=== PATIENT | female | born 1980 | race Caucasian/White ===

== ENCOUNTER 2016-03-01 14:01 | Emergency (ER) | payer OTHER ==
[2016-03-01 15:13] VITALS: BP 137/77
--- NOTE | 2016-03-01 15:32 | UC ---
Respiratory Complaint HPI - HPI Summary HPI Summary: worsening sinus pain, congestion cough - History of Current Complaint Chief Complaint: UCRespiratory Stated Complaint: HEADACHE, EAR ACHE, AND CHEST CONGESTION Time Seen by Provider: 03/01/16 15:23 Hx Obtained From: Patient Hx Last Menstrual Period: 01/25/16 ?: No Onset/Duration: Gradual Onset, Lasting Days - 10, Still Present, Worse Since - past 2 Timing: Constant Severity Initially: Mild Severity Currently: Moderate Character: Cough: Productive Aggravating Factors: Deep Breaths, Recumbent Position Alleviating Factors: Nothing Associated Signs And Symptoms: Positive: Chills, URI, Nasal Congestion, Sinus Discomfort - Allergies/Home Medications Allergies/Adverse Reactions: Allergies Allergy/AdvReac Type Severity Reaction Status Date / Time Azithromycin Allergy Nausea Verified 03/01/16 15:14 Erythromycin Allergy Hives Verified 03/01/16 15:14 Penicillins Allergy Hives Verified 03/01/16 15:14 PMH/Surg Hx/FS Hx/Imm Hx Previously Healthy: Yes Endocrine History Of: Denies: Diabetes, Thyroid Disease Cardiovascular History Of: Denies: Cardiac Disorders, Hypertension Respiratory History Of: Denies: COPD, Asthma GI/ History Of: Denies: Ulcer - Surgical History Surgical History: Yes Surgery Procedure, Year, and Place: pleural stenosis at 6 weeks - Family History Known Family History: Positive: Cardiac Disease, Hypertension - Social History Occupation: Employed Full-time Lives: With Family Alcohol Use: None Substance Use Type: None Smoking Status (MU): Heavy Every Day Tobacco Smoker Type: Cigarettes Amount Used/How Often: 1/2 ppd Have You Smoked in the Last Year: Yes Household Exposure Type: Cigarettes Cessation Counseling: Counseled 3+Min - 10 Min - Immunization History Most Recent Tetanus Shot: 2 years ago Review of Systems Constitutional: Chills, Fatigue Skin: Negative Eyes: Negative ENT: Sore Throat, Ear Ache, Nasal Discharge Respiratory: Cough Cardiovascular: Negative Gastrointestinal: Negative Genitourinary: Negative Motor: Negative Neurovascular: Negative Musculoskeletal: Negative Neurological: Headache Psychological: Negative All Other Systems Reviewed And Are Negative: Yes Physical Exam Triage Information Reviewed: Yes Appearance: Well-Nourished, Ill-Appearing - mild, Pain Distress - mild Vital Signs: Initial Vital Signs Temp 98.0 F 03/01/16 15:08 Pulse 90 03/01/16 15:08 Resp 20 03/01/16 15:08 BP 137/77 03/01/16 15:08 Pulse Ox 100 03/01/16 15:08 Vital Signs Reviewed: Yes Eye Exam: Normal Eyes: Positive: Conjunctiva Clear ENT Exam: Other ENT: Positive: Normal ENT inspection, Hearing grossly normal, Pharynx normal, Nasal congestion, Nasal drainage, TMs normal. Negative: Tonsillar swelling, Tonsillar exudate, Trismus, Muffled/hoarse voice Neck exam: Normal Neck: Positive: Supple, Nontender, No Lymphadenopathy Respiratory Exam: Normal Respiratory: Positive: Chest non-tender, Lungs clear, Normal breath sounds, No respiratory distress, No accessory muscle use Cardiovascular Exam: Normal Cardiovascular: Positive: RRR, No Murmur, Pulses Normal, Brisk Capillary Refill Musculoskeletal Exam: Normal Musculoskeletal: Positive: Strength Intact, ROM Intact, No Edema Neurological Exam: Normal Neurological: Positive: Alert, Muscle Tone Normal Psychological Exam: Normal Skin Exam: Normal - Additional Comments menses has been irregular Diagnostic Evaluation - Laboratory O2 Sat by Pulse Oximetry: 100 Respiratory Course/Dx - Course Course Of Treatment: zithromax, albuterol, flonase, increase fluids, follow with pcp, nicotine dependant - Differential Dx/Diagnosis Differential Diagnosis/HQI/PQRI: Asthma, Bronchitis, Influenza, Laryngitis, Sinusitis Provider Diagnoses: Bronchitis, nicotine dependant Discharge - Discharge Plan Condition: Critical Disposition: HOME Prescriptions: Albuterol HFA INHALER* [Ventolin HFA Inhaler*] 2 puff INH Q6H PRN #1 mdi PRN Reason: cough Azithromycin TAB* [Zithromax TAB (Z-WENDY) 250 mg #6 tabs] 2 tab PO .TODAY, THEN 1 DAILY #1 wendy Fluticasone NASAL SPRAY 50MCG* [Flonase NASAL SPRAY 50MCG*] 2 spray BOTH NARES DAILY #1 btl Patient Education Materials: Nicotine (By breathing), How to Stop Smoking (ED) , How to Use a Metered-Dose Inhaler (ED), Acute Bronchitis (ED), Acute Cough (ED ) Forms: *Work Release Referrals: Jim Keyes MD [Primary Care Provider] - If Needed Addendum entered and electronically signed by Enedina Garcia NP 03/02/16 19: 29: Addendum Addendum: home in stable condition
== END 2016-03-01 16:12 | disposition home or self-care (01) ==
LOC: UCEAST 14:01
DX: J40 Bronchitis, not specified as acute or chronic (principal); Z88.1 Allergy status to other antibiotic agents; Z88.0 Allergy status to penicillin; F17.210 Nicotine dependence, cigarettes, uncomplicated
CPT/HCPCS: 81002; 81025; 99211; G0463

== ENCOUNTER 2016-04-25 14:54 | Emergency (ER) | payer OTHER ==
[2016-04-25 15:18] VITALS: BP 135/77
--- NOTE | 2016-04-25 15:54 | UC ---
Knee Pain HPI - HPI Summary HPI Summary: right knee pain for 3 weeks some swelling and cracking with movement - History of Current Complaint Chief Complaint: UCLowerExtremity Stated Complaint: KNEE PAIN Time Seen by Provider: 04/25/16 15:43 Hx Obtained From: Patient Hx Last Menstrual Period: [id number] ?: No Onset/Duration: Gradual Onset, Lasting Weeks - 3 weeks ago, Still Present Severity Initially: Moderate Severity Currently: Moderate Pain Intensity: 5 Pain Scale Used: 0-10 Numeric Character: Aching, Throbbing Aggravating Factor(s): Movement, Weight Bearing Alleviating Factor(s): Rest, Position Associated Signs And Symptoms: Positive: Swelling Able to Bear Weight: Yes - Allergies/Home Medications Allergies/Adverse Reactions: Allergies Allergy/AdvReac Type Severity Reaction Status Date / Time Azithromycin Allergy Nausea Verified 04/25/16 15:18 Erythromycin Allergy Hives Verified 04/25/16 15:18 Penicillins Allergy Hives Verified 04/25/16 15:18 PMH/Surg Hx/FS Hx/Imm Hx Previously Healthy: Yes Endocrine History Of: Denies: Diabetes, Thyroid Disease Cardiovascular History Of: Denies: Cardiac Disorders, Hypertension Respiratory History Of: Denies: COPD, Asthma GI/ History Of: Denies: Ulcer - Surgical History Surgical History: Yes Surgery Procedure, Year, and Place: pleural stenosis at 6 weeks - Family History Known Family History: Positive: None, Cardiac Disease, Hypertension - Social History Occupation: Employed Full-time Lives: With Family Alcohol Use: None Substance Use Type: None Smoking Status (MU): Heavy Every Day Tobacco Smoker Type: Cigarettes Amount Used/How Often: 1/2 ppd Have You Smoked in the Last Year: Yes Household Exposure Type: Cigarettes Cessation Counseling: Counseled 3+Min - 10 Min - Immunization History Most Recent Tetanus Shot: 2 years ago Review of Systems Constitutional: Negative Skin: Negative Eyes: Negative ENT: Negative Respiratory: Negative Cardiovascular: Negative Gastrointestinal: Negative Genitourinary: Negative Motor: Negative Neurovascular: Negative Musculoskeletal: Arthralgia - right knee Neurological: Negative Psychological: Negative All Other Systems Reviewed And Are Negative: Yes Physical Exam Triage Information Reviewed: Yes Appearance: Well-Appearing, Well-Nourished, Obese Vital Signs: Initial Vital Signs Temp 98.2 F 04/25/16 15:12 Pulse 81 04/25/16 15:12 Resp 20 04/25/16 15:12 BP 135/77 04/25/16 15:12 Pulse Ox 100 04/25/16 15:12 Vital Signs Reviewed: Yes Eye Exam: Normal Eyes: Positive: Conjunctiva Clear ENT Exam: Normal ENT: Positive: Normal ENT inspection, Hearing grossly normal. Negative: Nasal congestion, Nasal drainage, Trismus, Muffled/hoarse voice Neck exam: Normal Neck: Positive: Supple, Nontender Respiratory Exam: Normal Respiratory: Positive: Chest non-tender, No respiratory distress, No accessory muscle use Cardiovascular Exam: Normal Cardiovascular: Positive: RRR, Pulses Normal, Brisk Capillary Refill Musculoskeletal Exam: Normal Musculoskeletal: Positive: Strength Intact, ROM Intact, No Edema Neurological Exam: Normal Neurological: Positive: Alert, Muscle Tone Normal, Fatigued Psychological Exam: Normal Skin Exam: Normal Diagnostics - Radiology No standard instances Xray Interpretation: No Acute Changes Radiology Interpretation Completed By: Radiologist Knee Pain Course/Dx - Course Course Of Treatment: Lauri, Ibuprofen, physical therapy, knee strengthing exercise , follow with pcp/ortho re-check if not improving with ortho - Differential Dx/Diagnosis Differential Diagnosis/HQI/PQRI: Contusion, Dislocation, Fracture (Closed), Sprain, Strain Provider Diagnoses: right knee pain Discharge - Discharge Plan Condition: Stable Disposition: HOME Prescriptions: Ibuprofen TAB* [Motrin TAB* 600 MG] 600 mg PO Q6H PRN #40 tab PRN Reason: pain Patient Education Materials: Knee Pain (ED), Knee Exercises (GEN) Referrals: Sravani Johns MD [Primary Care Provider] - Pretty Yang MD [Medical Doctor] - If Needed
--- NOTE | 2016-04-25 16:24 | RAD ---
INDICATION: Right knee pain COMPARISON: None TECHNIQUE: AP, lateral, tunnel, and sunrise views were obtained. FINDINGS: The bony structures, joint spaces, and soft tissues are normal for age. IMPRESSION: NO ACUTE BONY FINDINGS.
== END 2016-04-25 16:40 | disposition home or self-care (01) ==
LOC: UCEAST 14:54
DX: M25.561 Pain in right knee (principal); Z88.1 Allergy status to other antibiotic agents; Z88.0 Allergy status to penicillin; F17.210 Nicotine dependence, cigarettes, uncomplicated; Z71.6 Tobacco abuse counseling
CPT/HCPCS: 99211; G0463

== ENCOUNTER 2016-07-28 10:36 | Emergency (ER) | payer OTHER ==
[2016-07-28 10:55] VITALS: BP 115/62
--- NOTE | 2016-07-28 13:25 | UC ---
Back Pain HPI - HPI Summary HPI Summary: mid low back pain for years currently has been worse of 2 weeks--no radiating in to legs - History of Current Complaint Chief Complaint: UCBackPain Stated Complaint: BACK PAIN Time Seen by Provider: 07/28/16 13:14 Hx Obtained From: Patient Hx Last Menstrual Period: 07/02/16 ?: No Onset/Duration: Gradual Onset, Worse Since - past 2 weeks Timing: Constant Severity Initially: Moderate Severity Currently: Moderate Pain Intensity: 8 Pain Scale Used: 0-10 Numeric Back Pain: Is Discrete @ - mid low back Character: Aching, Stiffness Aggravating: Movement Alleviating: Nothing - Allergies/Home Medications Allergies/Adverse Reactions: Allergies Allergy/AdvReac Type Severity Reaction Status Date / Time Azithromycin Allergy Nausea Verified 07/28/16 10:55 Erythromycin Allergy Hives Verified 07/28/16 10:55 Penicillins Allergy Hives Verified 07/28/16 10:55 Home Medications: Home Medications Ibuprofen TAB* [Motrin TAB* 600 MG] 800 mg PO Q6H PRN 07/28/16 [History Confirmed 07/28/16] PMH/Surg Hx/FS Hx/Imm Hx Previously Healthy: No - chronic back pain GI/ History: Gastroesophageal Reflux - Surgical History Surgical History: Yes Surgery Procedure, Year, and Place: pleural stenosis at 6 weeks - Family History Known Family History: Positive: None, Cardiac Disease, Hypertension - Social History Occupation: Employed Full-time Lives: With Family Alcohol Use: None Substance Use Type: None Smoking Status (MU): Heavy Every Day Tobacco Smoker Type: Cigarettes Amount Used/How Often: 1/2 ppd Have You Smoked in the Last Year: Yes Household Exposure Type: Cigarettes Cessation Counseling: Patient Advised to Stop - Immunization History Most Recent Tetanus Shot: 2 years ago Review of Systems Constitutional: Negative Skin: Negative Eyes: Negative ENT: Negative Respiratory: Negative Cardiovascular: Negative Gastrointestinal: Negative Genitourinary: Negative Motor: Negative Neurovascular: Negative Musculoskeletal: Arthralgia - mid low back pain Neurological: Negative Psychological: Negative All Other Systems Reviewed And Are Negative: Yes Physical Exam Triage Information Reviewed: Yes Appearance: Well-Appearing, No Pain Distress, Well-Nourished Vital Signs: Initial Vital Signs Temp 99.5 F 07/28/16 10:52 Pulse 80 07/28/16 10:52 Resp 16 07/28/16 10:52 BP 115/62 07/28/16 10:52 Pulse Ox 100 07/28/16 10:52 Vital Signs Reviewed: Yes Eye Exam: Normal Eyes: Positive: Conjunctiva Clear ENT Exam: Normal ENT: Positive: Normal ENT inspection, Hearing grossly normal. Negative: Nasal congestion, Nasal drainage, Trismus, Muffled/hoarse voice Dental Exam: Normal Neck exam: Normal Neck: Positive: Supple, Nontender, No Lymphadenopathy Respiratory Exam: Normal Respiratory: Positive: Chest non-tender, No respiratory distress, No accessory muscle use Cardiovascular Exam: Normal Cardiovascular: Positive: RRR, No Murmur, Pulses Normal, Brisk Capillary Refill Abdominal Exam: Normal Abdomen Description: Positive: Nontender, No Organomegaly, Soft. Negative: CVA Tenderness (R), CVA Tenderness (L) Musculoskeletal Exam: Normal Musculoskeletal: Positive: Strength Intact, ROM Intact, No Edema Neurological Exam: Normal Neurological: Positive: Alert, Muscle Tone Normal Psychological Exam: Normal Skin Exam: Normal Back Pain Course/Dx - Course Course Of Treatment: Continue antiinflammatories, low back and corestrengthing exercise, physical therapy referral follow with pcp - Differential Dx/Diagnosis Differential Diagnosis/HQI/PQRI: Arthritis, Strain, Sprain Provider Diagnoses: Acute exacerbation of chronic low back pain Discharge - Discharge Plan Condition: Stable Disposition: HOME Patient Education Materials: Chronic Back Pain (ED), Core Strengthening Exercises (GEN), Lower Back Exercises (ED) Forms: *Work Release Referrals: Sravani Johns MD [Primary Care Provider] - 1 Week
[2016-07-28] MEDS ORDERED: Cyclobenzaprine TAB* 10 MG PO ONE (13:27)
[2016-07-28] MEDS ORDERED: Ibuprofen TAB* 600 MG PO ONE (13:27)
--- NOTE | 2016-07-28 14:00 | RAD ---
HISTORY: Acute exacerbation of chronic pain COMPARISONS: MRI dated August 08, 2011 VIEWS: 5 , Frontal, lateral, coned-down lateral sacral, and bilateral oblique views of the lumbar spine. FINDINGS: ALIGNMENT: The alignment is normal. VERTEBRAL BODIES: The vertebral body heights are normal. The interpedicular distances are normal. JOINTS: There is facet hypertrophic change at L5-S1 INTERVERTEBRAL DISCS: There is mild loss of intervertebral disc height at L5-S1 SOFT TISSUE: Unremarkable. OTHER: The pelvis is unremarkable. The lung bases are clear. IMPRESSION: DEGENERATIVE DISC DISEASE AND OSTEOARTHRITIS AT L5-S1
== END 2016-07-28 14:20 | disposition home or self-care (01) ==
LOC: UCEAST 10:36
DX: M54.5 Low back pain (principal); G89.29 Other chronic pain; Z72.0 Tobacco use
CPT/HCPCS: 72110; 99211; A9270-GY; G0463

== ENCOUNTER 2016-09-08 19:56 | Emergency (ER) | payer OTHER ==
[2016-09-08 20:17] VITALS: BP 115/66
--- NOTE | 2016-09-08 20:59 | RAD ---
INDICATION: Right knee pain and swelling. TECHNIQUE: 4 views of the right knee were obtained. FINDINGS: The bones are in normal alignment. No joint effusion or fracture is seen. Joint spaces appear maintained. IMPRESSION: NEGATIVE EXAM.
--- NOTE | 2016-09-08 21:27 | UC ---
Knee Pain HPI - HPI Summary HPI Summary: ONE WEEK OF RIGHT KNEE SWELLING AND PAIN WITH WEIGHT BEARING. WORKS AT [employer] AND IS ON FEET ALL OF THE TIME. NO CALF PAIN. NO KNOWN TRAUMA. KNEE OVER LAST FOUR DAYS HAS FELT MORE PAINFUL AND MORE UNSTABLE. - History of Current Complaint Chief Complaint: UCLowerExtremity Stated Complaint: RIGHT KNEE Time Seen by Provider: 09/08/16 20:23 Hx Obtained From: Patient Hx Last Menstrual Period: 08/29/16 Onset/Duration: Gradual Onset, Lasting Weeks, Still Present Severity Initially: Mild Severity Currently: Moderate Character: Dull, Aching, Spasmodic Aggravating Factor(s): Movement, Weight Bearing, Stairs Alleviating Factor(s): Rest, Position Associated Signs And Symptoms: Positive: Swelling. Negative: Numbness, Tingling Able to Bear Weight: Yes - Risk Factors Septic Arthritis Risk Factor: Negative Gout Risk Factor: Negative - Allergies/Home Medications Allergies/Adverse Reactions: Allergies Allergy/AdvReac Type Severity Reaction Status Date / Time Azithromycin Allergy Nausea Verified 09/08/16 20:17 Erythromycin Allergy Hives Verified 09/08/16 20:17 Penicillins Allergy Hives Verified 09/08/16 20:17 PMH/Surg Hx/FS Hx/Imm Hx Previously Healthy: Yes - Surgical History Surgical History: Yes Surgery Procedure, Year, and Place: pleural stenosis at 6 weeks old - Family History Known Family History: Positive: None, Cardiac Disease, Hypertension - Social History Occupation: Employed Full-time Lives: With Family Alcohol Use: None Substance Use Type: None Smoking Status (MU): Heavy Every Day Tobacco Smoker Type: Cigarettes Amount Used/How Often: 1/2 ppd Have You Smoked in the Last Year: Yes Household Exposure Type: Cigarettes Cessation Counseling: Patient Advised to Stop - Immunization History Most Recent Tetanus Shot: 2 years ago Review of Systems Constitutional: Negative Skin: Negative Eyes: Negative ENT: Negative Respiratory: Negative Cardiovascular: Negative Gastrointestinal: Negative Genitourinary: Negative Motor: Negative Neurovascular: Negative Musculoskeletal: Arthralgia, Edema, Myalgia Neurological: Negative Psychological: Negative All Other Systems Reviewed And Are Negative: Yes Physical Exam Triage Information Reviewed: Yes Appearance: Well-Appearing, Well-Nourished, Pain Distress - MILD Vital Signs: Initial Vital Signs Temp 99.0 F 09/08/16 20:15 Pulse 83 09/08/16 20:15 Resp 18 09/08/16 20:15 BP 115/66 09/08/16 20:15 Pulse Ox 100 09/08/16 20:15 Vital Signs Reviewed: Yes Eye Exam: Normal ENT Exam: Normal ENT: Positive: Normal ENT inspection, TMs normal Dental Exam: Normal Neck exam: Normal Neck: Positive: Supple, Nontender, No Lymphadenopathy Respiratory Exam: Normal Respiratory: Positive: Chest non-tender, Lungs clear, Normal breath sounds, No respiratory distress, No accessory muscle use Cardiovascular Exam: Normal Cardiovascular: Positive: RRR, No Murmur, Pulses Normal Abdominal Exam: Normal Musculoskeletal: Positive: Strength Intact, ROM Intact, No Edema, Other: - ANTERIOR PATELLAR TENDERNESS Neurological Exam: Normal Psychological Exam: Normal Skin Exam: Normal Knee Pain Course/Dx - Differential Dx/Diagnosis Differential Diagnosis/HQI/PQRI: Contusion, Dislocation, DVT, Fracture (Closed) , Gout, Internal Derangement Of Knee, Patellofemoral Syndrome, Sprain, Strain, Other - MORALES CYST Provider Diagnoses: RIGHT KNEE PAIN Discharge - Discharge Plan Condition: Stable Disposition: HOME Patient Education Materials: Knee Pain (ED) Forms: *Work Release Referrals: [facility] [Outside] Sravani Johns MD [Primary Care Provider] - Pretty Yang MD [Medical Doctor] - Additional Instructions: PHYSICAL THERAPY REFERRAL: You have been prescribed physical therapy. Treatments may include stretching, exercise, application of heat or cold, and other modalities. After an injury, PT can reduce swelling and pain. In recovery, PT is used to restore mobility and strength. Your specific treatment goals are: _X____ Reduction of Swelling (EGS, US, ice as needed) __X___ Pain Reduction (EGS, US, ice as needed) ___X__ TENS Pack Fitting and Instruction Wound Hydrotherapy ___X__ Preservation of Mobility ___X__ Yarsani of Mobility ___X__ Strength Yarsani ___X__ Work or Sports Hardening This instruction sheet also serves as your PHYSICAL THERAPY REFERRAL! Please take it with you to the therapist, so he/she will be aware of your diagnosis and treatment plan. You may see the physical therapist of your choice for these treatments, but may wish to check with your insurance to be sure the provider you select is covered. It's important to see the doctor to whom you have been referred for follow up.
== END 2016-09-08 21:30 | disposition home or self-care (01) ==
LOC: UCEAST 19:56
DX: M25.561 Pain in right knee (principal); Z88.3 Allergy status to other anti-infective agents; Z88.0 Allergy status to penicillin; F17.210 Nicotine dependence, cigarettes, uncomplicated
CPT/HCPCS: 99212; G0463

== ENCOUNTER 2017-03-21 15:57 | Emergency (ER) | payer OTHER ==
[2017-03-21 17:27] VITALS: BP 121/79
--- NOTE | 2017-03-22 22:09 | UC ---
Amos Childs Gabriel, scribed for Jim Graham MD on 03/21/17 at 1836 . FLU HPI - HPI Summary HPI Summary: This patient is a 37 year old F presenting to [facility] [place] accompanied by her son with a chief complaint of an influenza like illness that began 3 days ago. The patient rates the pain 8/10 in severity. Patient reports MARTINEZ, myalgia, sore throat, neck pain, swollen glands, and cough. The patients son has a URI and ear infection. - History of Current Complaint Chief Complaint: UCRespiratory Stated Complaint: URI Time Seen by Provider: 03/21/17 18:26 Hx Obtained From: Patient Hx Last Menstrual Period: 2 wks ago Onset/Duration: Still Present Severity Currently: Moderate Severity Initially: Moderate Pain Intensity: 8 Pain Scale Used: 0-10 Numeric Associated Signs & Symptoms: Positive: Fever, Myalgia, Cough, Sore Throat, Headache - Allergy/Home Medications Allergies/Adverse Reactions: Allergies Allergy/AdvReac Type Severity Reaction Status Date / Time MS Azithromycin Allergy Nausea Verified 03/21/17 17:27 [Azithromycin] MS Erythromycin Allergy Hives Verified 03/21/17 17:27 [Erythromycin] MS Penicillins [Penicillins] Allergy Hives Verified 03/21/17 17:27 PMH/Surg Hx/FS Hx/Imm Hx Other History Of: Negative For: HIV, Hepatitis B, Hepatitis C - Surgical History Surgical History: Yes Surgery Procedure, Year, and Place: pleural stenosis at 6 weeks old - Family History Known Family History: Positive: Cardiac Disease, Hypertension, Diabetes, Other - COPD Negative: Renal Disease, Seizure Disorder - Social History Alcohol Use: None Substance Use Type: None Smoking Status (MU): Heavy Every Day Tobacco Smoker Type: Cigarettes Amount Used/How Often: 1/2 ppd Have You Smoked in the Last Year: Yes Household Exposure Type: Cigarettes - Immunization History Most Recent Tetanus Shot: 2 years ago Review of Systems ENT: Sore Throat, Other - swollen glands Respiratory: Cough Musculoskeletal: Myalgia, Other: - neck pain Neurological: Headache All Other Systems Reviewed And Are Negative: Yes Physical Exam Triage Information Reviewed: Yes Vital Signs: Initial Vital Signs Temp 99.8 F 03/21/17 17:23 Pulse 83 03/21/17 17:23 Resp 18 03/21/17 17:23 BP 121/79 03/21/17 17:23 Pulse Ox 100 03/21/17 17:23 - Additional Comments VITAL SIGNS: Reviewed. GENERAL: Patient is a well developed and nourished F who is lying comfortable in the stretcher. Patient is not in any acute respiratory distress. HEAD AND FACE: Normocephalic EYES: PERRLA, EOMI x 2. EARS: Hearing grossly intact. MOUTH: Oropharynx within normal limits. NECK: Supple, trachea is midline, no adenopathy, no JVD, no carotid bruit. CHEST: Symmetric, no tenderness at palpation LUNGS: Clear to auscultation bilaterally. No wheezing or crackles. CVS: Regular rate and rhythm, S1 and S2 present, no murmurs or gallops appreciated. ABDOMEN: Soft, non-tender. Bowel sounds are normal. No abdominal abnormal pulsations. EXTREMITIES: Full ROM in all major joints, no edema, no cyanosis or clubbing. NEURO: Alert and oriented x 3. No acute neurological deficits. Speech is normal and follows commands. SKIN: Dry and warm Flu Course/Dx - Course Course Of Treatment: This patient is a 37 year old F presenting to [facility] [place] accompanied by her son with a chief complaint of influenza like illness that began 3 days ago. The patient rates the pain 8/10 in severity. Patient reports MARTINEZ, myalgia, sore throat, neck pain, swollen glands, and cough. The patients son has a URI and ear infection. Pt has a negative influenza A and B. I discussed all the findings and test results with the patient. Pt was instructed to return to the urgent care or go to ER immediately if any of the symptoms return or worsens. Plan of care was discussed with the patient and pt understands and agrees. All questions were answered to patient satisfaction. There were no further complaints or concerns. Patient will be discharged with a diagnosed of URI and follow up from PCP. The patient is agreeable with this plan. - Differential Dx/Diagnosis Provider Diagnoses: URI Discharge - Discharge Plan Condition: Stable Disposition: HOME Patient Education Materials: Upper Respiratory Infection (DC) Referrals: Sravani Johns MD [Primary Care Provider] - Additional Instructions: Take tylenol or ibuprofen as needed for fever or pain Increase your fluid intake Return to the if symptoms worsen The documentation as recorded by the Amos sales Gabriel accurately reflects the service I personally performed and the decisions made by , Jim Graham MD.
== END 2017-03-21 19:05 | disposition home or self-care (01) ==
LOC: UCEAST 15:57
DX: J06.9 Acute upper respiratory infection, unspecified (principal); F17.210 Nicotine dependence, cigarettes, uncomplicated; Z88.3 Allergy status to other anti-infective agents; Z88.0 Allergy status to penicillin
CPT/HCPCS: 87502; 99211; G0463

== ENCOUNTER 2017-07-26 19:05 | Emergency (ER) | payer OTHER ==
[2017-07-26 19:20] VITALS: BP 136/72
--- NOTE | 2017-07-26 20:14 | UC ---
Ear Complaint HPI - HPI Summary HPI Summary: States that for the past day she has shooting very painful pain arising from the left side of her face/ear , 6/7/10 in intensity and lasting several seconds. The pain appears ramdomly, she could be eating or just watching TV. Denies any fever or hearing loss. Tobacco use positive - History of Current Complaint Chief Complaint: UCEar Stated Complaint: EAR PAIN, SINUS COMPLAINT Time Seen by Provider: 07/26/17 19:23 Hx Obtained From: Patient Hx Last Menstrual Period: 05/27/17 ?: Yes Onset/Duration: Sudden Onset, Lasting Days Severity Initially: Severe Severity Currently: Severe Pain Intensity: 0 Pain Scale Used: 0-10 Numeric Aggravating Factors: Nothing Alleviating Factors: Nothing - Allergies/Home Medications Allergies/Adverse Reactions: Allergies Allergy/AdvReac Type Severity Reaction Status Date / Time azithromycin Allergy Nausea Verified 05/28/17 16:27 erythromycin base Allergy Hives Verified 05/28/17 16:27 Penicillins Allergy Hives Verified 05/28/17 16:27 PMH/Surg Hx/FS Hx/Imm Hx Previously Healthy: Yes GI/ History: Gastroesophageal Reflux Other History Of: Negative For: HIV, Hepatitis B, Hepatitis C - Surgical History Surgical History: Yes Surgery Procedure, Year, and Place: pleural stenosis at 6 weeks old - Family History Known Family History: Positive: None, Cardiac Disease, Hypertension, Diabetes, Other - COPD Negative: Renal Disease, Seizure Disorder - Social History Alcohol Use: None Substance Use Type: None Smoking Status (MU): Heavy Every Day Tobacco Smoker Type: Cigarettes Amount Used/How Often: 1/2 ppd Have You Smoked in the Last Year: Yes Household Exposure Type: Cigarettes - Immunization History Most Recent Tetanus Shot: 2 years ago Review of Systems Constitutional: Negative ENT: Ear Ache All Other Systems Reviewed And Are Negative: Yes Physical Exam Triage Information Reviewed: Yes Appearance: Well-Appearing, No Pain Distress, Well-Nourished Vital Signs: Initial Vital Signs Temp 99.1 F 07/26/17 19:17 Pulse 89 07/26/17 19:17 Resp 20 07/26/17 19:17 BP 136/72 07/26/17 19:17 Pulse Ox 99 07/26/17 19:17 Vital Signs Reviewed: Yes Eyes: Positive: Conjunctiva Clear ENT: Positive: Hearing grossly normal, Pharynx normal, TMs normal, Uvula midline Dental: Positive: Gross Decay/Caries @ Neck: Positive: Supple, Nontender, No Lymphadenopathy Respiratory: Positive: Chest non-tender, Lungs clear, Normal breath sounds, No respiratory distress Cardiovascular Exam: Normal Cardiovascular: Positive: RRR, No Murmur, Pulses Normal, Brisk Capillary Refill Neurological Exam: Normal, Other - CN 2-12 grossly intact, sensory intact, gait wnl Ear Complaint Course/Dx - Course Course Of Treatment: Tic doloreaux, start carbamazepine, side effects discussed with patient, follow up with dental clinic, and PCP to evaluate resolution of symptoms and need for further testing. - Differential Dx/Diagnosis Provider Diagnoses: trigeminal neuralgia Discharge - Sign-Out/Discharge Documenting (check all that apply): Discharge/Admit/Transfer - Discharge Plan Condition: Good Disposition: HOME Prescriptions: Carbamazepine [Carbatrol] 200 mg PO BID 10 Days #20 cap Patient Education Materials: Trigeminal Neuralgia (ED) Referrals: Sravani Johns MD [Primary Care Provider] - Additional Instructions: follow up with PCP for symptoms and assessment for need of further testing/ imaging. Dental follow up, curb tobacco use - Billing Disposition and Condition Condition: GOOD Disposition: Home
== END 2017-07-26 19:55 | disposition home or self-care (01) ==
LOC: UCEAST 19:05
DX: G50.0 Trigeminal neuralgia (principal); K21.9 Gastro-esophageal reflux disease without esophagitis; Z88.1 Allergy status to other antibiotic agents; Z88.0 Allergy status to penicillin; F17.210 Nicotine dependence, cigarettes, uncomplicated
CPT/HCPCS: 99212; G0463

== ENCOUNTER 2017-12-21 11:20 | Emergency (ER) | payer OTHER ==
[2017-12-21 12:16] VITALS: BP 114/68
--- NOTE | 2017-12-21 12:38 | UC ---
Respiratory Complaint HPI - HPI Summary HPI Summary: Patient presents with 3 day onset chest, head congestion. She states she has a productive cough and is coughing up brownish sputum and in the morning she hears rattling in her chest. She states the morning is the worse for her. She states her son is being treated for URI and ear infections. She denies recorded or tactile fever, chills. - History of Current Complaint Chief Complaint: UCGeneralIllness Stated Complaint: RESP COMPLAINT Time Seen by Provider: 12/21/17 12:22 Hx Obtained From: Patient Hx Last Menstrual Period: 12/04/17 Onset/Duration: Gradual Onset, Lasting Days Pain Intensity: 6 Aggravating Factors: Nothing Alleviating Factors: Nothing Associated Signs And Symptoms: Positive: URI, Nasal Congestion, Sinus Discomfort - Risk Factors Pulmonary Embolism Risk Factors: Negative Cardiac Risk Factors: Negative Pseudomonas Risk Factors: Negative Tuberculosis Risk Factors: Negative - Allergies/Home Medications Allergies/Adverse Reactions: Allergies Allergy/AdvReac Type Severity Reaction Status Date / Time erythromycin base Allergy Hives Verified 12/21/17 12:16 Penicillins Allergy Hives Verified 12/21/17 12:16 azithromycin AdvReac Nausea Verified 12/21/17 12:16 PMH/Surg Hx/FS Hx/Imm Hx Previously Healthy: Yes Other History Of: Negative For: HIV, Hepatitis B, Hepatitis C - Surgical History Surgical History: Yes Surgery Procedure, Year, and Place: pleural stenosis at 6 weeks old - Family History Known Family History: Positive: None, Cardiac Disease, Hypertension, Diabetes, Other - COPD Negative: Renal Disease, Seizure Disorder - Social History Occupation: Employed Full-time Lives: Alone Alcohol Use: Rare Substance Use Type: None Smoking Status (MU): Heavy Every Day Tobacco Smoker Type: Cigarettes Amount Used/How Often: 1/2 ppd Have You Smoked in the Last Year: Yes Household Exposure Type: Cigarettes - Immunization History Most Recent Tetanus Shot: 2 years ago Review of Systems Constitutional: Negative Skin: Negative Eyes: Negative ENT: Negative Respiratory: Cough Cardiovascular: Negative Gastrointestinal: Negative Genitourinary: Negative Motor: Negative Neurovascular: Negative Musculoskeletal: Negative Neurological: Negative Psychological: Negative Is Patient Immunocompromised?: No All Other Systems Reviewed And Are Negative: Yes Physical Exam Triage Information Reviewed: Yes Appearance: Well-Appearing Vital Signs: Initial Vital Signs Temp 98.4 F 12/21/17 12:12 Pulse 83 12/21/17 12:12 Resp 16 12/21/17 12:12 BP 114/68 12/21/17 12:12 Pulse Ox 100 12/21/17 12:12 Vital Signs Reviewed: Yes Eye Exam: Normal ENT Exam: Normal Neck exam: Normal Neck: Positive: 1 Respiratory Exam: Normal Cardiovascular Exam: Normal Musculoskeletal Exam: Normal Neurological Exam: Normal Psychological Exam: Normal Skin Exam: Normal UC Diagnostic Evaluation - Laboratory O2 Sat by Pulse Oximetry: 100 Respiratory Course/Dx - Course Course Of Treatment: Patient presents with 3 day onset chest congestion and cough. On examination she is well appearing and in no extemeous. Her VSS, and she is afebrile with no other confounding comorbities. She is not immunsuppressed. She presents with clinical signs of URI and will be treated conservativity with Robitussin DM, rest, increase fluids. Tylenol and Advil if needed for pain and/or fever. And if symtpoms do not improve as anticiapted she should either return for re-evalaution or be seen by her PCP. She verbalized understanding and in agreemment with the discharge plan. - Differential Dx/Diagnosis Differential Diagnosis/HQI/PQRI: Other - URI Provider Diagnoses: URI Discharge - Sign-Out/Discharge Documenting (check all that apply): Patient Departure All imaging exams completed and their final reports reviewed: No Studies - Discharge Plan Condition: Stable Disposition: HOME Prescriptions: GuaiFENesin DM* [Robitussin DM*] 5 ml PO Q4H PRN #180 ml MDD 30 ml PRN Reason: Cough Patient Education Materials: Upper Respiratory Infection (DC) Referrals: Sravani Johns MD [Primary Care Provider] - - Billing Disposition and Condition Condition: STABLE Disposition: Home - Attestation Statements Document Initiated by Scribe: No
== END 2017-12-21 12:31 | disposition home or self-care (01) ==
LOC: UCEAST 11:20
DX: J06.9 Acute upper respiratory infection, unspecified (principal); F17.210 Nicotine dependence, cigarettes, uncomplicated; Z88.0 Allergy status to penicillin; Z88.1 Allergy status to other antibiotic agents
CPT/HCPCS: 99212; G0463

== ENCOUNTER 2018-05-16 15:50 | Emergency (ER) | payer OTHER ==
[2018-05-16 16:22] VITALS: BP 136/85
--- NOTE | 2018-05-16 16:38 | UC ---
Throat Pain/Nasal Teddy HPI - HPI Summary HPI Summary: 38-year-old woman comes in with a chief complaint of sinusitis symptoms. Patient's been sick for 3 or 4 days. She's got runny nose. She feels pressure in her sinuses. Minimal sore throat. Patient has some neck pain in the posterior lateral aspect. No back pain. No difficulty moving her neck. No chest congestion no shortness of breath. She has not tried any over-the- counter medications. - History of Current Complaint Chief Complaint: UCRespiratory Stated Complaint: SINUS ISSUES Time Seen by Provider: 05/16/18 16:29 Hx Last Menstrual Period: 04/29/18 Pain Intensity: 8 - Allergies/Home Medications Allergies/Adverse Reactions: Allergies Allergy/AdvReac Type Severity Reaction Status Date / Time erythromycin base Allergy Hives Verified 05/16/18 16:22 Penicillins Allergy Hives Verified 05/16/18 16:22 azithromycin AdvReac Nausea Verified 05/16/18 16:22 PMH/Surg Hx/FS Hx/Imm Hx Previously Healthy: Yes GI/ History: Gastroesophageal Reflux Other History Of: Negative For: HIV, Hepatitis B, Hepatitis C - Surgical History Surgical History: Yes Surgery Procedure, Year, and Place: pleural stenosis at 6 weeks old - Family History Known Family History: Positive: None, Cardiac Disease, Hypertension, Diabetes, Other - COPD Negative: Renal Disease, Seizure Disorder - Social History Alcohol Use: Rare Substance Use Type: None Smoking Status (MU): Light Every Day Tobacco Smoker Type: Cigarettes Amount Used/How Often: 1/2 ppd Have You Smoked in the Last Year: Yes Household Exposure Type: Cigarettes - Immunization History Most Recent Tetanus Shot: 2 years ago Review of Systems All Other Systems Reviewed And Are Negative: Yes Constitutional: Positive: Fever Skin: Positive: Negative Eyes: Positive: Negative ENT: Positive: Sore Throat, Nasal Discharge, Sinus Congestion, Sinus Pain/ Tenderness Respiratory: Positive: Negative Cardiovascular: Positive: Negative Gastrointestinal: Positive: Negative Motor: Positive: Negative Neurovascular: Positive: Negative Musculoskeletal: Positive: Myalgia Neurological: Positive: Headache Psychological: Positive: Negative Is Patient Immunocompromised?: No Physical Exam Triage Information Reviewed: Yes Appearance: No Pain Distress, Well-Nourished, Ill-Appearing Vital Signs: Initial Vital Signs Temp 100.3 F 05/16/18 16:18 Pulse 86 05/16/18 16:18 Resp 16 05/16/18 16:18 BP 136/85 05/16/18 16:18 Pulse Ox 100 05/16/18 16:18 Vital Signs Reviewed: Yes Eye Exam: Normal Eyes: Positive: Conjunctiva Clear ENT: Positive: Pharyngeal erythema, Nasal congestion, Nasal drainage, TMs normal Neck exam: Normal Neck: Positive: Supple Respiratory: Positive: Lungs clear, Normal breath sounds, No respiratory distress Cardiovascular: Positive: RRR Musculoskeletal Exam: Normal Musculoskeletal: Positive: Strength Intact, ROM Intact Neurological Exam: Normal Neurological: Positive: Alert, Muscle Tone Normal Psychological Exam: Normal Psychological: Positive: Age Appropriate Behavior Skin Exam: Normal Throat Pain/Nasal Course/Dx - Course Course Of Treatment: DISCUSSED VIRAL VERSES BACTERIAL INFECTION AND THE ROLE OF ANTIBIOTICS. THE PATIENT WISHES TO BE ON ANTIBIOTICS AT THIS TIME. Patient's neck was supple with full range of motion. Clinically the patient does not have meningitis. We discussed the signs and symptoms of meningitis and let her know that if she worsens she needs to get reevaluated again right away. - Differential Dx/Diagnosis Provider Diagnosis: Sinusitis Discharge - Sign-Out/Discharge Documenting (check all that apply): Patient Departure All imaging exams completed and their final reports reviewed: No Studies - Discharge Plan Condition: Stable Disposition: HOME Prescriptions: DOXYcycline CAP(*) [DOXYcycline 100MG CAP(*)] 100 mg PO BID #20 cap Patient Education Materials: Sinusitis (ED) Forms: *Work Release Referrals: Sravani Johns MD [Primary Care Provider] - Additional Instructions: FOLLOW UP WITH YOUR DOCTOR IF NOT COMPLETELY IMPROVED. GET REEVALUATED SOONER IF YOUR CONDITION WORSENS OR ANY QUESTIONS OR CONCERNS. - Billing Disposition and Condition Condition: STABLE Disposition: Home
== END 2018-05-16 16:50 | disposition home or self-care (01) ==
LOC: UCEAST 15:50
DX: J01.90 Acute sinusitis, unspecified (principal); K21.9 Gastro-esophageal reflux disease without esophagitis; F17.210 Nicotine dependence, cigarettes, uncomplicated; Z88.3 Allergy status to other anti-infective agents; Z88.0 Allergy status to penicillin
CPT/HCPCS: 99202; G0463

== ENCOUNTER 2018-07-21 08:47 | Emergency (ER) | payer OTHER ==
[2018-07-21 08:56] VITALS: BP 118/77
--- NOTE | 2018-07-21 09:12 | UC ---
Throat Pain/Nasal Teddy HPI - HPI Summary HPI Summary: 38 y/o male presents to the urgent care c/o nasal congestion, green nasal discharge for the past 2 weeks. Pt w/ Hx of recurrent sinusitis w/ narrowing of RT maxillary sinuses. Symptoms worsen for the past week w/ productive cough and green phlegm. About 2 days ago, she developed sore throat and moderate PND. Cough is worse and night time, she feels RT lung is very congested. Pt has been taken OTC medication w/o any improvement of symptoms. Pt denies wheezing, SOB, chest pain, abdominal pain, N/v/D. - History of Current Complaint Chief Complaint: UCRespiratory Stated Complaint: CONGESTION Time Seen by Provider: 07/21/18 09:10 Hx Obtained From: Patient Hx Last Menstrual Period: 07/05/18 Onset/Duration: Gradual Onset, Lasting Weeks - 2 weeks, Still Present, Worse Since - 1 week Severity: Moderate Pain Intensity: 7 - sinus pain Pain Scale Used: 0-10 Numeric Cough: Sputum Appears - green Associated Signs & Symptoms: Positive: Sinus Discomfort, Nasal Discharge - green. Negative: Wheezing, Fever - Epiglottits Risk Factors Epiglottis Risk Factors: Negative - Allergies/Home Medications Allergies/Adverse Reactions: Allergies Allergy/AdvReac Type Severity Reaction Status Date / Time erythromycin base Allergy Hives Verified 07/21/18 08:56 Penicillins Allergy Hives Verified 07/21/18 08:56 azithromycin AdvReac Nausea Verified 07/21/18 08:56 PMH/Surg Hx/FS Hx/Imm Hx Previously Healthy: Yes Other Respiratory History: recurrent sinusitis Other History Of: Negative For: HIV, Hepatitis B, Hepatitis C - Surgical History Surgical History: Yes Surgery Procedure, Year, and Place: pleural stenosis at 6 weeks old - Family History Known Family History: Positive: Cardiac Disease, Hypertension, Diabetes, Other - COPD, depression Negative: Renal Disease, Seizure Disorder - Social History Occupation: Employed Full-time Lives: With Family Alcohol Use: Rare Substance Use Type: None Smoking Status (MU): Light Every Day Tobacco Smoker Type: Cigarettes Amount Used/How Often: 1/2 ppd Have You Smoked in the Last Year: Yes Household Exposure Type: Cigarettes - Immunization History Most Recent Tetanus Shot: 2 years ago Review of Systems All Other Systems Reviewed And Are Negative: Yes Constitutional: Positive: Fatigue Skin: Positive: Negative Eyes: Positive: Negative ENT: Positive: Sore Throat, Nasal Discharge - green, Sinus Congestion, Sinus Pain/Tenderness, Other - moderate green PND Respiratory: Positive: Cough - productive w/ green phlegm Cardiovascular: Positive: Negative Gastrointestinal: Positive: Negative Genitourinary: Positive: Negative Motor: Positive: Negative Neurovascular: Positive: Negative Musculoskeletal: Positive: Negative Neurological: Positive: Negative Psychological: Positive: Negative Is Patient Immunocompromised?: No Physical Exam - Summary Physical Exam Summary: Vital Signs Reviewed: Yes General: well developed, well nourished female sitting in the examining table w/ o any apparent distress Eyes: Positive: Conjunctiva Clear - PERRLA, EOMI, fundi grossly normal ENT: Positive: Normal ENT inspection, Hearing grossly normal, Pharynx normal, Nasal congestion - edematous and erythematous nasal mucosa, Nasal drainage - yellowish drainage, positive maxiallary and fronatal sinuses tendernes on percussion, RT>LF, B/L external ear canals clear, TMs normal. Negative: Tonsillar swelling, Tonsillar exudate Neck: Positive: Supple, Nontender, No Lymphadenopathy Respiratory: no orthopnea or dyspnea. Able to speak in full sentences, no retractions or accessory muscle use, no tripod position, stridor, or head bobbing. Positive breath sounds bilaterally. diffuse scattered rhonchi on RT lung, no wheezes, no crackles or rales. Cardiovascular: Positive: RRR, No Murmur, Pulses Normal, Brisk Capillary Refill Abdomen Description: Positive: Nontender, No Organomegaly, Soft. Negative: CVA Tenderness (R), CVA Tenderness (L) Bowel Sounds: Positive: Present Musculoskeletal Exam: Normal Musculoskeletal: Positive: Strength Intact, ROM Intact, No Edema Neurological Exam: Normal Psychological Exam: Normal Skin Exam: Normal Triage Information Reviewed: Yes Vital Signs: Initial Vital Signs Temp 99 F 07/21/18 08:53 Pulse 77 07/21/18 08:53 Resp 16 07/21/18 08:53 BP 118/77 07/21/18 08:53 Pulse Ox 100 07/21/18 08:53 Throat Pain/Nasal Course/Dx - Course Course Of Treatment: 38 y/o male presents to the urgent care c/o nasal congestion, green nasal discharge for the past 2 weeks. Pt w/ Hx of recurrent sinusitis w/ narrowing of RT maxillary sinuses. Symptoms worsen for the past week w/ productive cough and green phlegm. About 2 days ago, she developed sore throat and moderate PND. Cough is worse and night time, she feels RT lung is very congested. Pt has been taken OTC medication w/o any improvement of symptoms. Pt denies wheezing, SOB, chest pain, abdominal pain, N/v/D. Hx obtained. B/l w/ Scattered RT posterior lung w/ rhonchi, no wheezes, no crackles, no rales, O2Sat: - Differential Dx/Diagnosis Differential Diagnosis/HQI/PQRI: Influenza, Mononucleosis, Otitis Media, Pharyngitis, Sinusitis, Tonsillitis, URI, Other - bronchitis Provider Diagnosis: Acute bacterial sinusitis, Acute bronchitis Discharge - Sign-Out/Discharge Documenting (check all that apply): Patient Departure - d/C home All imaging exams completed and their final reports reviewed: Yes - Discharge Plan Condition: Stable Disposition: HOME Prescriptions: Benzonatate CAP* [Tessalon 100 MG CAP*] 100 mg PO TID #21 cap DOXYcycline CAP(*) [DOXYcycline 100MG CAP(*)] 100 mg PO BID #20 cap Fluticasone NASAL SPRAY 50MCG* [Flonase NASAL SPRAY 50MCG*] 2 spray BOTH NARES DAILY #1 btl Patient Education Materials: Sinusitis (ED), Acute Bronchitis (ED) Referrals: Sravani Johns MD [Primary Care Provider] - 3 Days Additional Instructions: 1- Please increase fluid intake and rest. take full course of antibiotic to avoid resistance. Take yogurts w/ probiotics or Culturelle to protect your GI system 2-Use Flonase as directed to help drain fluid. Also buy saline drops to clear sinuses 3-Take Tessalon tabs PO to alleviate cough. Increase hydration, rest, eat well and avid strenuous exercise. 4-Please f/u w/ your PCP in 3 days if symptoms do not improve for further management and treatment - Billing Disposition and Condition Condition: STABLE Disposition: Home
== END 2018-07-21 09:55 | disposition home or self-care (01) ==
LOC: UCEAST 08:47
DX: J01.90 Acute sinusitis, unspecified (principal); B96.89 Other specified bacterial agents as the cause of diseases classified elsewhere; J20.9 Acute bronchitis, unspecified; Z88.0 Allergy status to penicillin; Z88.1 Allergy status to other antibiotic agents; F17.210 Nicotine dependence, cigarettes, uncomplicated
CPT/HCPCS: 71046; 99212; G0463

== ENCOUNTER 2019-01-19 15:11 | Emergency (ER) | payer OTHER ==
[2019-01-19 15:23] VITALS: BP 132/80
--- NOTE | 2019-01-19 15:33 | UC ---
Throat Pain/Nasal Teddy HPI - HPI Summary HPI Summary: 38 year old female presents with 3 day history of nasal congestion, sinus pressure, and occasional non-productive cough. Has not treated symptoms with OTC medications. Denies fever, chills, ear pain, sore throat, chest pain, or difficulty breathing. - History of Current Complaint Chief Complaint: UCGeneralIllness Stated Complaint: POSS SINUS INFECTION Time Seen by Provider: 01/19/19 15:28 Hx Obtained From: Patient Hx Last Menstrual Period: 3 weeks ago Pain Intensity: 0 - Allergies/Home Medications Allergies/Adverse Reactions: Allergies Allergy/AdvReac Type Severity Reaction Status Date / Time erythromycin base Allergy Hives Verified 01/19/19 15:24 Penicillins Allergy Hives Verified 01/19/19 15:24 azithromycin AdvReac Nausea Verified 01/19/19 15:24 PMH/Surg Hx/FS Hx/Imm Hx GI/ History: Gastroesophageal Reflux Other History Of: Negative For: HIV, Hepatitis B, Hepatitis C - Surgical History Surgical History: Yes Surgery Procedure, Year, and Place: pleural stenosis at 6 weeks old - Family History Known Family History: Positive: Cardiac Disease, Hypertension, Diabetes, Other - COPD, depression Negative: Renal Disease, Seizure Disorder - Social History Occupation: Employed Full-time Lives: With Family Alcohol Use: Rare Substance Use Type: None Smoking Status (MU): Light Every Day Tobacco Smoker Type: Cigarettes Amount Used/How Often: 1/2 ppd Have You Smoked in the Last Year: Yes Household Exposure Type: Cigarettes - Immunization History Most Recent Tetanus Shot: 2 years ago Review of Systems All Other Systems Reviewed And Are Negative: Yes Constitutional: Negative: Fever, Chills Skin: Positive: Negative Eyes: Negative: Drainage, Eye Redness ENT: Positive: Nasal Discharge, Sinus Congestion, Sinus Pain/Tenderness. Negative: Sore Throat, Ear Ache Respiratory: Positive: Cough. Negative: Shortness Of Breath Cardiovascular: Negative: Chest Pain Gastrointestinal: Negative: Abdominal Pain, Vomiting, Diarrhea, Nausea Genitourinary: Positive: Negative Musculoskeletal: Positive: Negative Neurological: Positive: Negative Is Patient Immunocompromised?: No Physical Exam - Summary Physical Exam Summary: GENERAL APPEARANCE: Well developed, well nourished, alert and cooperative, and appears to be in no acute distress. EYES: Conjunctiva clear. No drainage. EARS: External auditory canals and tympanic membranes clear, hearing grossly intact. NOSE: Mild-moderate nasal congestion. No nasal discharge. Maxillary sinus tenderness. THROAT: Pharynx normal. No tonsilar inflammation, swelling, exudate, or lesions. Uvula midline. NECK: Neck supple, non-tender without lymphadenopathy. CARDIAC: Normal S1 and S2. No S3, S4 or murmurs. Rhythm is regular. There is no peripheral edema, cyanosis or pallor. Extremities are warm and well perfused. Capillary refill is less than 2 seconds. Peripheral pulses intact. LUNGS: Clear to auscultation without rales, rhonchi, wheezing or diminished breath sounds. ABDOMEN: Positive bowel sounds. Soft, nondistended, nontender. No guarding or rebound. No masses or hepatosplenomegally. MUSKULOSKELETAL: ROM intact to all extremities. No joint erythema or tenderness. Normal muscular development. Normal gait. SKIN: Skin normal color, texture and turgor with no lesions or eruptions. Triage Information Reviewed: Yes Vital Signs: Initial Vital Signs Temp 97 F 01/19/19 15:22 Pulse 86 01/19/19 15:22 Resp 16 01/19/19 15:22 BP 132/80 01/19/19 15:22 Pulse Ox 100 01/19/19 15:22 Vital Signs Reviewed: Yes Throat Pain/Nasal Course/Dx - Course Course Of Treatment: 38 year old female presents with 3 day history of nasal congestion, sinus pressure, and occasional non-productive cough. Has not treated symptoms with OTC medications. Denies fever, chills, ear pain, sore throat, chest pain, or difficulty breathing. Afebrile. VSS. Patient had mild-moderate nasal congestion with maxillary sinus tenderness and otherwise unremarkable exam. Discussed that her symptoms were likely an acute sinusitis of viral origin and recommending symptomatic care at this time. She is to follow up with her PCP in 5-7 days if symptoms do not improve. Anticipatory guidance and warning symptoms reviewed with patient. Verbalizes understanding and agrees with POC. - Differential Dx/Diagnosis Differential Diagnosis/HQI/PQRI: Influenza, Sinusitis, URI Provider Diagnosis: Acute sinusitis Discharge ED - Sign-Out/Discharge Documenting (check all that apply): Patient Departure All imaging exams completed and their final reports reviewed: No Studies - Discharge Plan Condition: Stable Disposition: HOME Patient Education Materials: Sinusitis (ED) Referrals: Sravani Johns MD [Primary Care Provider] - 5 Days (If no improvement in symptoms.) Additional Instructions: Your history and exam are consistent with a sinus infection. Sinus infections without fever are most often caused by a viral infection. Viral infections do not respond to antibiotics and are limited to the treatment of symptoms. Viral infections typically run their course in 7-10 days. Drink plenty of fluids to avoid dehydration especially if you are running any fever. Use a saline rinse kit such as Neti Pot or NeilMed at least twice a day to help thin secretions and promote drainage of the sinuses. Use over the counter fluticasone (Flonase) nasal spray 2 sprays each nostril once daily. Use an over the counter decongestant such as Sudafed according to directions to help with congestion. Take over the counter acetaminophen (Tylenol) or ibuprofen (Advil, Motrin) according to directions as needed for pain or fever. Follow up with your primary care provider in 5-7 days if symptoms persist. Seek immediate medical attention in the emergency room if you have fever greater than 100.5 F despite taking acetaminophen or ibuprofen, have chest pain , difficulty breathing, are unable to swallow, or have any worsening of symptoms. - Billing Disposition and Condition Condition: STABLE Disposition: Home
== END 2019-01-19 16:17 | disposition home or self-care (01) ==
LOC: UCEAST 15:11
DX: J01.90 Acute sinusitis, unspecified (principal); F17.210 Nicotine dependence, cigarettes, uncomplicated; Z88.0 Allergy status to penicillin; Z88.1 Allergy status to other antibiotic agents
CPT/HCPCS: 99211; G0463

== ENCOUNTER 2019-04-12 16:42 | Emergency (ER) | payer OTHER ==
[2019-04-12 16:57] VITALS: BP 130/78
--- NOTE | 2019-04-12 17:08 | UC ---
Ear Complaint HPI - HPI Summary HPI Summary: 39 yo with onset of left ear pain x 3 or 4 days ago, with mild decrease in hearing and mild dizziness. She is feeling a little unwell and run down, with dull headache and some eye irritation and occasional discharge. No fever or chills. Past hx of cerumen accumulation - History of Current Complaint Chief Complaint: UCEar Stated Complaint: EAR PAIN Time Seen by Provider: 04/12/19 16:59 Hx Obtained From: Patient Hx Last Menstrual Period: 03/26/2019 Onset/Duration: Gradual Onset, Lasting Days - 4 Severity Initially: Mild Severity Currently: Moderate Pain Intensity: 6 Alleviating Factors: OTC Meds Associated Signs/Symptoms: Positive: URI Symptoms - Allergies/Home Medications Allergies/Adverse Reactions: Allergies Allergy/AdvReac Type Severity Reaction Status Date / Time erythromycin base Allergy Hives Verified 01/19/19 15:24 Penicillins Allergy Hives Verified 01/19/19 15:24 azithromycin AdvReac Nausea Verified 01/19/19 15:24 Home Medications: Home Medications Omeprazole CAP (NF) [Prilosec CAP* 20 MG] 20 mg PO DAILY 06/07/13 [History Confirmed 01/19/19] Ibuprofen TAB* [Motrin TAB* 600 MG] 800 mg PO Q6H PRN 07/28/16 [History Confirmed 01/19/19] Azithromycin TAB* [Zithromax TAB (Z-WENDY) 250 mg #6 tabs] 250 mg PO DAILY #4 tab 04/12/19 [Rx] PMH/Surg Hx/FS Hx/Imm Hx Previously Healthy: Yes GI/ History: Gastroesophageal Reflux Other History Of: Negative For: HIV, Hepatitis B, Hepatitis C - Surgical History Surgical History: Yes Surgery Procedure, Year, and Place: pleural stenosis at 6 weeks old - Family History Known Family History: Positive: Cardiac Disease, Hypertension, Diabetes, Other - COPD, depression Negative: Renal Disease, Seizure Disorder - Social History Occupation: Employed Full-time - SAHM Lives: With Family Alcohol Use: Rare Substance Use Type: None Smoking Status (MU): Light Every Day Tobacco Smoker Type: Cigarettes Amount Used/How Often: 1/2 ppd Have You Smoked in the Last Year: Yes Household Exposure Type: Cigarettes - Immunization History Most Recent Tetanus Shot: 2 years ago Review of Systems All Other Systems Reviewed And Are Negative: Yes Constitutional: Positive: Fatigue Skin: Positive: Negative Eyes: Positive: Drainage - clear eye drainage off and on ENT: Positive: Ear Ache. Negative: Sore Throat Respiratory: Positive: Negative Cardiovascular: Positive: Negative Gastrointestinal: Positive: Negative Genitourinary: Positive: Negative Motor: Positive: Negative Neurovascular: Positive: Negative Musculoskeletal: Positive: Negative Neurological/Mental Status: Positive: Negative Psychological: Positive: Negative Is Patient Immunocompromised?: No Physical Exam Triage Information Reviewed: Yes Appearance: Well-Appearing, No Pain Distress Vital Signs: Initial Vital Signs Temp 98.7 F 04/12/19 16:52 Pulse 81 04/12/19 16:52 Resp 16 04/12/19 16:52 BP 130/78 04/12/19 16:52 Pulse Ox 100 04/12/19 16:52 ENT: Positive: Pharynx normal, Other - bilateral ear cerumen Dental Exam: Normal Neck: Positive: Supple, Nontender, No Lymphadenopathy Respiratory: Positive: Lungs clear, Normal breath sounds Cardiovascular: Positive: RRR, No Murmur, Pulses Normal Abdominal Exam: Normal Musculoskeletal Exam: Normal Neurological Exam: Normal Psychological Exam: Normal Skin Exam: Normal Re-Evaluation - Re-Evaluation First Eval Re-Evaluation Time: 17:30 Change: Improved Comment: Post removal of cerumen, persistent left ear pressure. TM exam shows erythema and severe retraction, consistent with early left OM. Ear Complaint Course/Dx - Course Course Of Treatment: zpack for treatment --she is not allergic, gets stomach ache for about 15 minutes after each dose. She prefers this to other medications. - Differential Dx/Diagnosis Differential Diagnosis/HQI/PQRI: Cerumen Impaction, Otitis Externa, Otitis Media Provider Diagnosis: Left otitis media, Cerumen impaction Discharge ED - Sign-Out/Discharge Documenting (check all that apply): Patient Departure All imaging exams completed and their final reports reviewed: No Studies - Discharge Plan Condition: Stable Disposition: HOME Prescriptions: Azithromycin TAB* [Zithromax TAB (Z-WENDY) 250 mg #6 tabs] 250 mg PO DAILY #4 tab Patient Education Materials: Ear Infection (ED) Referrals: Sravani Johns MD [Primary Care Provider] - Additional Instructions: You have started azithromycin for treatment of left ear infection. Use of flonase nose spray could help to relieve some of the left ear pressure. Continue use of ibuprofen as needed for discomfort. Anticipate that your ear painand pressure should improve in 2 to 3 days with treatment. - Billing Disposition and Condition Condition: STABLE Disposition: Home
[2019-04-12] MEDS ORDERED: Azithromycin TAB* 250 MG PO ONE (17:40)
== END 2019-04-12 17:54 | disposition home or self-care (01) ==
LOC: UCEAST 16:42
DX: H66.92 Otitis media, unspecified, left ear (principal); H61.22 Impacted cerumen, left ear; K21.9 Gastro-esophageal reflux disease without esophagitis; R53.83 Other fatigue; F17.210 Nicotine dependence, cigarettes, uncomplicated; Z88.0 Allergy status to penicillin; Z88.1 Allergy status to other antibiotic agents; Z79.899 Other long term (current) drug therapy
CPT/HCPCS: 99212; A9270-GY; G0463